=== PATIENT | male | born 2000 | race Caucasian/White ===

== ENCOUNTER 2024-09-15 20:45 | Emergency (ER) | payer SELFPAY ==
[~2024-09-15] VITALS: Ht 175.3 cm; Wt 84.0 kg
[2024-09-15 20:54] VITALS: PULSE 71; O2SAT 98
[2024-09-15 21:03] VITALS: BP 134/70; RESP 16; TEMP 98.3; O2SAT 98
== END 2024-09-15 21:10 | disposition home or self-care (01) ==
LOC: ER 20:45
DX: S09.90XD Unspecified injury of head, subsequent encounter (principal); Z48.02 Encounter for removal of sutures; X58.XXXD Exposure to other specified factors, subsequent encounter
CPT/HCPCS: 99281; Z7610